=== PATIENT | female | born 1975 | race Caucasian/White ===

== ENCOUNTER → 2018-11-26 13:57 | Outpatient (CLI) | payer BC | END | disposition home or self-care (01) | LOC: D.CT 13:57 | DX: R10.9 Unspecified abdominal pain (principal) ==

== ENCOUNTER → 2021-02-12 08:46 | Outpatient (CLI) | payer BC | END | disposition home or self-care (01) | LOC: D.NM 08:46 | PROVIDERS: ATTEND Registered Nurse Emergency | DX: R10.9 Unspecified abdominal pain (principal) ==